=== PATIENT | male | born 1995 | race Hispanic/Latino ===

== ENCOUNTER 2022-02-23 18:01 | Emergency (ER) | payer OTHER ==
[~2022-02-23] VITALS: Ht 175.3 cm; Wt 134.7 kg
[2022-02-23] MEDS ORDERED: NAPR-1192 PO (18:57)
[2022-02-23] MEDS ORDERED: ACETAMINOPHEN 500 MG TABLET ONE (19:15)
[2022-02-23 19:21] VITALS: BP 126/74
== END 2022-02-23 19:22 | disposition home or self-care (01) ==
LOC: EDH 18:01
DX: S46.912A Strain of unspecified muscle, fascia and tendon at shoulder and upper arm level, left arm, initial encounter (principal); M25.571 Pain in right ankle and joints of right foot; W18.39XA Other fall on same level, initial encounter; Y93.89 Activity, other specified; Y92.89 Other specified places as the place of occurrence of the external cause; Y99.8 Other external cause status
CPT/HCPCS: 73020; 73600

== ENCOUNTER 2024-02-19 12:18 | Emergency (ER) | payer OTHER ==
[~2024-02-19] VITALS: Ht 175.3 cm; Wt 136.1 kg
[~2024-02-19 12:18] MED LIST: NAPR-1192 PO
[2024-02-19 13:06] LABS: BASOPHILS # (AUTO) 0.09 K/uL (0.00-0.20); BASOPHILS % (AUTO) 0.8 % (0.0-5.0); EOSINOPHILS # (AUTO) 0.15 K/uL (0.00-0.70); EOSINOPHILS % (AUTO) 1.3 % (0.0-8.0); HEMATOCRIT 47.1 % (42-54); IMMATURE GRANULOCYTE ABSOLUTE 0.06 K/uL (0-1); LYMPHOCYTES # (AUTO) 3.1 K/uL (1.0-4.8); LYMPHOCYTES % (AUTO) 26.1 % (21.0-51.0); MEAN CORPUSCULAR HEMOGLOBIN 30.7 pg (27.0-33.0); MEAN CORPUSCULAR VOLUME 87.5 fL (79-99); MONOCYTES # (AUTO) 0.8 K/uL (0.1-1.0); MONOCYTES % (AUTO) 6.9 % (3.0-13.0); NEUTROPHILS # (AUTO) 7.7 K/uL (1.8-7.7); NEUTROPHILS % (AUTO) 64.4 % (40.0-77.0); PLATELET COUNT (AUTO) 245 K/uL (130-400); RED BLOOD CELL COUNT(AUTO) 5.38 MIL/uL (4.50-6.20); RED CELL DISTRIBUTION WIDTH 12.7 % (11.0-15.5)
[2024-02-19 13:07] LABS: ADD UA MICROSCOPIC YES; APPEARANCE,URINE CLEAR (CLEAR); BILIRUBIN,URINE NEGATIVE (NEGATIVE); COLOR,URINE YELLOW (YELLOW); GLUCOSE, URINE (UA) NEGATIVE (NEGATIVE); KETONES,URINE NEGATIVE (NEGATIVE); LEUKOCYTE ESTERASE ,URINE 25 Leu/uL (NEGATIVE); NITRATE,URINE NEGATIVE (NEGATIVE); OCCULT BLOOD,URINE SMALL (NEGATIVE); PH,URINE 5.5 (5.0-8.0); PROTEIN,URINE 20 mg/dL (NEGATIVE); UROBILINOGEN,URINE 0.2 mg/dL (0.2-1.0)
[2024-02-19 13:10] LABS: BACTERIA,URINE FEW /HPF (None Seen); MUCUS,URINE RARE LPF (None Seen); SQUAMOUS EPITHELIAL CELL,UR RARE /HPF (0-2)
[2024-02-19 13:20] LABS: CREATININE 1.2 mg/dL (0.5-1.3); POTASSIUM 3.2 mmol/L (3.5-5.1)
[2024-02-19] MEDS: KETOROLAC 15MG/ML VIAL (15MG/ML) IV ONE (13:27)
[2024-02-19] MEDS: FAMOTIDINE 20MG TAB PO ONE (13:27)
[2024-02-19] MEDS: 0.9%NACL 1000ML 1,000 ML IV SCH (13:27)
[2024-02-19 13:31] LABS: ALBUMIN 3.8 g/dL (3.5-5.0); BILIRUBIN,TOTAL 0.5 mg/dL (0.2-1.0); TOTAL PROTEIN, SERUM 7.6 g/dL (6.0-8.3)
[2024-02-19] MEDS ORDERED: CIPR-278 PO (14:20)
[2024-02-19] MEDS ORDERED: ONDA4TAB10 PO (14:25)
[2024-02-19] MEDS: POTASSIUM BICARB/CIT AC 25 MEQ TABLET.EFF PO STA (14:47)
[2024-02-19] MEDS: CEFTRIAXONE 1G VIAL IVPB STA (14:47)
[2024-02-19 15:34] VITALS: BP 104/60; PULSE 67; RESP 17; O2SAT 99
== END 2024-02-19 15:39 | disposition home or self-care (01) ==
LOC: EDH 12:18
DX: N39.0 Urinary tract infection, site not specified (principal); E87.6 Hypokalemia
CPT/HCPCS: 99285; 74176; 96374; 96375; 82550; 80053; 83690; 85025; 87088; 81001; 36415; J7030; J0696; J1885